=== PATIENT | female | born 2000 | race Caucasian/White ===

== ENCOUNTER 2023-11-14 14:27 | Inpatient (IN) | payer BC ==
[~2023-11-14] VITALS: Ht 162.6 cm; Wt 56.7 kg
[2023-11-14] MEDS ORDERED: LIDOCAINE VISCOUS 2% UD 15 ML UDC ONE (15:49)
[2023-11-14] MEDS ORDERED: MAG HYDROX/AL HYDROX/SIMETH 30 ML UDC ONE (15:49)
[2023-11-14] MEDS: MAG HYDROX/AL HYDROX/SIMETH 30 ML UDC PO ONE (15:54)
[2023-11-14] MEDS: LIDOCAINE VISCOUS 2% UD 15 ML UDC MM ONE (15:54)
[2023-11-14 18:24] LABS: BASOPHILS % (AUTO) 0.2 % (0.0-2.0); HEMATOCRIT 40 % (33-45); HEMOGLOBIN 13.5 g/dL (11.5-14.8); LYMPHOCYTES # (AUTO) 2.6 K/uL (0.8-4.8); LYMPHOCYTES % (AUTO) 19.9 % (20.0-44.0); MEAN CORPUSCULAR HEMOGLOBIN 28 PG (26.0-33.0); MEAN CORPUSCULAR HGB CONC 33 g/dl (31.0-36.0); MEAN CORPUSCULAR VOLUME 83 fL (82-100); MONOCYTES # (AUTO) 0.9 K/uL (0.1-1.30); MONOCYTES % (AUTO) 6.8 % (2.0-12.0); NEUTROPHILS # (AUTO) 9.6 K/uL (1.8-8.9); NEUTROPHILS % (AUTO) 73.1 % (43.0-81.0); PLATELET COUNT (AUTO) 313 K/uL (150-450); RED BLOOD CELL COUNT(AUTO) 4.85 MIL/uL (4.0-5.2); RED CELL DISTRIBUTION WIDTH 14.5 % (11.5-15.0); WHITE BLOOD COUNT (AUTO) 13.1 K/uL (4.3-11.0)
[2023-11-14 18:44] LABS: CALCIUM, SERUM 10.2 mg/dL (8.5-10.1); CARBON DIOXIDE 22 mmol/L (21-32); CHLORIDE 105 mmol/L (98-107); GLUCOSE 99 mg/dL (74-106); NT-PRO BNP 126 pg/mL (0-125); POTASSIUM 3.7 mmol/L (3.5-5.1); SODIUM SERUM 138 mmol/L (136-145); UREA NITROGEN, BLOOD 13 mg/dL (7-18)
[2023-11-14] MEDS ORDERED: LORAZEPAM INJ 2 MG/ML VIAL ONE (19:38)
[2023-11-14] MEDS: LORAZEPAM INJ 2 MG/ML VIAL IV ONE (19:44)
[2023-11-14] MEDS ORDERED: ONDANSETRON HCL/PF 4 MG/2 ML VIAL IVP PRN (20:30)
[2023-11-14] MEDS ORDERED: MAGNESIUM HYDROXIDE 30 ML UDC PO PRN (20:30)
[2023-11-14] MEDS ORDERED: MAG HYDROX/AL HYDROX/SIMETH 30 ML UDC PO PRN (20:30)
[2023-11-14] MEDS ORDERED: ACETAMINOPHEN 325 MG TABLET PO PRN (20:30)
[2023-11-14 20:44] VITALS: BP 123/80; TEMP 97.2; O2SAT 99
[2023-11-14 21:00] VITALS: BP 123/80; TEMP 97.2; O2SAT 99
[2023-11-14] MEDS: IV NS 0.9% 1,000 ML IV SCH (22:11)
[2023-11-15] VITALS: BP 110/64; TEMP 97.4; O2SAT 98
[2023-11-15 04:00] VITALS: BP 126/76; TEMP 97.7; O2SAT 99
[2023-11-15 06:29] LABS: BASOPHILS % (AUTO) 0.3 % (0.0-2.0); EOSINOPHILS % (AUTO) 0.2 % (0.0-6.0); HEMATOCRIT 35 % (33-45); HEMOGLOBIN 11.8 g/dL (11.5-14.8); LYMPHOCYTES % (AUTO) 41.6 % (20.0-44.0); MEAN CORPUSCULAR HEMOGLOBIN 29 PG (26.0-33.0); MEAN CORPUSCULAR HGB CONC 34 g/dl (31.0-36.0); MEAN CORPUSCULAR VOLUME 84 fL (82-100); MONOCYTES # (AUTO) 0.4 K/uL (0.1-1.30); MONOCYTES % (AUTO) 5.4 % (2.0-12.0); NEUTROPHILS # (AUTO) 3.8 K/uL (1.8-8.9); NEUTROPHILS % (AUTO) 52.5 % (43.0-81.0); PLATELET COUNT (AUTO) 217 K/uL (150-450); RED BLOOD CELL COUNT(AUTO) 4.14 MIL/uL (4.0-5.2); RED CELL DISTRIBUTION WIDTH 14.5 % (11.5-15.0); WHITE BLOOD COUNT (AUTO) 7.2 K/uL (4.3-11.0)
[2023-11-15 06:50] LABS: CALCIUM, SERUM 8.4 mg/dL (8.5-10.1); CREATININE 0.8 mg/dL (0.6-1.3); MAGNESIUM 2.2 mg/dL (1.8-2.4); PHOSPHORUS 4.6 mg/dL (2.5-4.9); POTASSIUM 3.6 mmol/L (3.5-5.1); THYROID STIMULATING HORMONE 2.52 uIU/mL (0.358-3.74)
[2023-11-15] MEDS: FAMOTIDINE (20 MG) 20 MG TABLET PO SCH (08:27)
[2023-11-15] MEDS: LORATADINE 10 MG TABLET PO SCH (08:27)
[2023-11-15] MEDS ORDERED: CALC-1026 PO (08:39)
[2023-11-15] MEDS ORDERED: IRON PO (08:39)
[2023-11-15] MEDS ORDERED: VITA1TAB56 PO (08:39)
[2023-11-15] MEDS ORDERED: CHOL200059 PO (08:39)
[2023-11-15 08:45] VITALS: BP 114/76; TEMP 98.1; O2SAT 99
[2023-11-15] MEDS ORDERED: PRED20TA PO (12:10)
[2023-11-15] MEDS ORDERED: IV NS 0.9% 1,000 ML IV PRN (13:44)
== END 2023-11-15 13:35 | disposition home or self-care (01) | DRG 916 ==
LOC: ER 14:38 → TELE 20:10 → MED 11-15 06:16
DX: T78.40XA Allergy, unspecified, initial encounter (principal); D72.829 Elevated white blood cell count, unspecified; K21.9 Gastro-esophageal reflux disease without esophagitis; Z82.49 Family history of ischemic heart disease and other diseases of the circulatory system; X58.XXXA Exposure to other specified factors, initial encounter
CPT/HCPCS: 36415; 70490-TC; 71045-TC; 80048-TC; 83735-TC; 83880; 84100-TC; 84443-TC; 84484-TC; 85025-TC; 85378-TC; A4223; G0378; J2060; J7030